=== PATIENT | male | born 1985 | race Caucasian/White ===

== ENCOUNTER 2016-10-21 10:33 | Emergency (ER) | payer SELFPAY ==
[2016-10-21 11:17] VITALS: TEMP 98
[2016-10-21] MEDS ORDERED: FLUTICASONE 50MCG/SPRAY NASAL 16GM EA NOSTRIL STA (11:46)
--- NOTE | 2016-10-21 11:53 | ED ---
ENT HPI - General Chief complaint: ENT Stated complaint: nosebleeds Time Seen by Provider: 10/21/16 11:27 Source: patient, RN notes reviewed Mode of arrival: ambulatory Limitations: no limitations - History of Present Illness Initial comments: 31-year-old male presents emergency Department chief complaint of epistaxis patient states she's had about 3 or 4 nosebleeds over the last week or so. Patient states there was just stopped. Patient states he has any lightheadedness or dizziness with this. Patient denies any falls,. Patient states she was concerned due to the bleeding states that they should be seen. Patient denied this time any bleeding.Patient denies any recent fever, chills, shortness of breath, chest pain, back pain, abdominal pain, nausea vomiting, numbness or tingling, dysuria or hematuria, constipation or diarrhea, headaches or visual changes, or any other current symptoms. - Related Data Allergies Allergy/AdvReac Type Severity Reaction Status Date / Time Penicillins Allergy Unknown Verified 10/21/16 11:17 Childhood Review of Systems ROS Statement: Those systems with pertinent positive or pertinent negative responses have been documented in the HPI. ROS Other: All systems not noted in ROS Statement are negative. Past Medical History Additional Past Medical History / Comment(s): pneumothorax with chest tube insertion 2012 History of Any Multi-Drug Resistant Organisms: None Reported Past Surgical History: No Surgical Hx Reported Past Psychological History: No Psychological Hx Reported Smoking Status: Never smoker Past Alcohol Use History: Occasional Past Drug Use History: None Reported General Exam Limitations: no limitations General appearance: alert, in no apparent distress Head exam: Present: atraumatic, normocephalic, normal inspection Eye exam: Present: normal appearance, PERRL, EOMI. Absent: scleral icterus, conjunctival injection, periorbital swelling Expanded Ear exam: Present: normal external inspection Mouth exam: Present: normal external inspection Teeth exam: Present: normal inspection Throat exam: normal inspection, other (Patient does appear to bleeding of bilateral Kiesselbach plexus that is currently clotted for this. Recent dryness to the area.) Neck exam: Present: normal inspection. Absent: tenderness, meningismus, lymphadenopathy Respiratory exam: Present: normal lung sounds bilaterally. Absent: respiratory distress, wheezes, rales, rhonchi, stridor Cardiovascular Exam: Present: regular rate, normal rhythm, normal heart sounds. Absent: systolic murmur, diastolic murmur, rubs, gallop, clicks Neurological exam: Present: alert, oriented X3, CN II-XII intact. Absent: motor sensory deficit Psychiatric exam: Present: normal affect, normal mood Skin exam: Present: warm, dry, intact, normal color. Absent: rash Course Vital Signs 10/21/16 11:14 Temperature 98.0 F Pulse Rate 71 Respiratory 18 Rate Blood Pressure 145/84 O2 Sat by Pulse 98 Oximetry Medical Decision Making - Medical Decision Making 31-year-old male presents emergency department history of epistaxis. This time we discussed using Neosporin to the area to help with lubrication. At this time patient is not bleeding. He was given nasal clamp and Flonase to help if he does continue to bleed again. We did Follow-up patient stated he understood all questions have been answered. This and will be discharged home. Disposition Clinical Impression: Anterior epistaxis Disposition: HOME SELF-CARE Condition: Stable Instructions: Nosebleed (ED) Additional Instructions: Please use medication as discussed. Please follow up with family doctor if symptoms have not improved over the next two days. Please return to the emergency room if your symptoms increase or worsen or for any other concerns. Referrals: Celena Yeung MD [STAFF PHYSICIAN] - 1-2 days Time of Disposition: 11:52
[2016-10-21 12:36] VITALS: BP 119/66; PULSE 65; RESP 16
== END 2016-10-21 12:36 | disposition home or self-care (01) ==
LOC: EC 10:33
DX: R04.0 Epistaxis (principal); Z88.0 Allergy status to penicillin
CPT/HCPCS: 99282

== ENCOUNTER 2017-11-19 14:58 | Emergency (ER) | payer OTHER ==
[2017-11-19 15:03] VITALS: BP 118/70; PULSE 108; RESP 16; TEMP 101.2
[2017-11-19] MEDS ORDERED: ACETAMINOPHEN TAB 500 MG TAB PO STA (15:42)
[2017-11-19] MEDS ORDERED: IBUPROFEN 600 MG TAB PO STA (15:42)
--- NOTE | 2017-11-19 15:54 | ED ---
General Adult HPI - General Chief complaint: Upper Respiratory Infection Stated complaint: Neck Pain Time Seen by Provider: 11/19/17 15:33 Source: patient, RN notes reviewed Mode of arrival: ambulatory Limitations: no limitations - History of Present Illness Initial comments: Patient 32-year-old male who presents emergency room today with chief complaint of increased cough congestion and body aches that started yesterday. He does not that he woke up this morning feeling worse. Did take IV Profen proximal 9 AM. Patient does admit to some aches in his back and his upper neck area. States worse with certain movements. Patient admits that when he woke up from a nap was not feeling well and girlfriend advised him come here to the emergency room. Patient denies any nausea or vomiting. States he has been tolerating liquids. Patient denies any complaints or symptoms at this time. - Related Data Previous Rx's Medication Instructions Recorded Ibuprofen [Motrin] 600 mg PO Q6HR PRN #40 day 11/19/17 Oseltamivir [Tamiflu] 75 mg PO Q12HR 5 Days cap 11/19/17 Allergies Allergy/AdvReac Type Severity Reaction Status Date / Time Penicillins Allergy Unknown Verified 11/19/17 15:46 Childhood Review of Systems ROS Statement: Those systems with pertinent positive or pertinent negative responses have been documented in the HPI. ROS Other: All systems not noted in ROS Statement are negative. Past Medical History Additional Past Medical History / Comment(s): pneumothorax with chest tube insertion 2011 History of Any Multi-Drug Resistant Organisms: None Reported Past Surgical History: No Surgical Hx Reported Past Psychological History: No Psychological Hx Reported Smoking Status: Never smoker Past Alcohol Use History: Occasional Past Drug Use History: None Reported General Exam - General Exam Comments Initial Comments: General: The patient is awake and alert, in no distress, and does not appear acutely ill. Eye: Pupils are equal, round and reactive to light, extra-ocular movements are intact. No nystagmus. There is normal conjunctiva bilaterally. No signs of icterus. Ears, nose, mouth and throat: There are moist mucous membranes and no oral lesions. Neck: The neck is supple, there is no tenderness or JVD. No meningismal signs. Cardiovascular: There is a regular rate and rhythm. No murmur, rub or gallop is appreciated. Respiratory: Lungs are clear to auscultation, respirations are non-labored, breath sounds are equal. No wheezes, stridor, rales, or rhonchi. Musculoskeletal: Normal ROM, no tenderness. Strength 5/5. Sensation intact. Pulses equal bilaterally 2+. Neurological: A&O x 3. CN II-XII intact, There are no obvious motor or sensory deficits. Coordination appears grossly intact. Speech is normal. Skin: Skin is warm and dry and no rashes or lesions are noted. Psychiatric: Cooperative, appropriate mood & affect, normal judgment. Limitations: no limitations Course Vital Signs 11/19/17 15:01 Temperature 101.2 F H Pulse Rate 108 H Respiratory 16 Rate Blood Pressure 118/70 O2 Sat by Pulse 97 Oximetry Medical Decision Making - Medical Decision Making Chest x-ray negative for any pneumonia. Patient influenza A positive will be started on Tamiflu. - Lab Data Lab Results 11/19/17 Range/Units 15:04 Influenza Type A RNA Detected H (Not Detectd) Influenza Type B (PCR) Not Detected (Not Detectd) Disposition Clinical Impression: Influenza A Disposition: HOME SELF-CARE Condition: Good Instructions: Influenza (ED) Additional Instructions: Please use medication as discussed. Please follow-up with family doctor in the next 2 days of symptoms have not improved. Please return to emergency room if the symptoms increase or worsen or for any other concerns. Prescriptions: Ibuprofen [Motrin] 600 mg PO Q6HR PRN #40 day PRN Reason: Pain Oseltamivir [Tamiflu] 75 mg PO Q12HR 5 Days cap Referrals: None,Stated [Primary Care Provider] - 1-2 days Kris Avery DO [STAFF PHYSICIAN] - 1-2 days Time of Disposition: 15:57
--- NOTE | 2017-11-19 15:55 | XR ---
EXAMINATION TYPE: XR chest 2V DATE OF EXAM: 11/19/2017 COMPARISON: None HISTORY: 32-year-old male with cough, headache, fever TECHNIQUE: PA and lateral views FINDINGS: The cardiomediastinal silhouette, aorta, and pulmonary vasculature are within normal limits. Lungs an d pleural spaces are clear. IMPRESSION: No acute cardiopulmonary process.
== END 2017-11-19 16:04 | disposition home or self-care (01) ==
LOC: EC 14:58
DX: J10.1 Influenza due to other identified influenza virus with other respiratory manifestations (principal); Z98.890 Other specified postprocedural states; Z88.0 Allergy status to penicillin
CPT/HCPCS: 71046; 87502; 99283

== ENCOUNTER 2018-01-15 01:25 | Emergency (ER) | payer OTHER ==
[2018-01-15 01:34] VITALS: BP 129/72; PULSE 81; RESP 20; TEMP 97.8
[2018-01-15] MEDS ORDERED: predniSONE 50 MG TAB PO STA (01:50)
--- NOTE | 2018-01-15 02:10 | ED ---
URI HPI - General Chief Complaint: Upper Respiratory Infection Stated Complaint: cough Time Seen by Provider: 01/15/18 01:42 Source: patient Mode of arrival: ambulatory Limitations: no limitations - History of Present Illness Initial Comments: 32-year-old male patient presents to the emergency department today for complaints of cough for a little over 2 weeks. Patient reports that symptoms started with a hoarse voice and mild cough. Patient states that the cough seems to be worsening. States he has episodes of coughing that causes his chest to hurt. Patient states he does have mild shortness of breath during these coughing episodes. Patient denies any fevers or chills with this. He denies any nasal congestion, ear pain, or sore throat. States he does have seasonal allergies and thinks this may be contributing. Denies any tobacco use. Patient denies any recent rash, abdominal pain, nausea, vomiting, diarrhea , constipation, back pain, numbness, tingling, dizziness, weakness, hematuria, dysuria, urinary urgency, urinary frequency, headache, visual changes, or any other complaints. - Related Data Previous Rx's Medication Instructions Recorded Albuterol Sulfate [Proair Hfa] 1 - 2 puff INHALATION Q6HR PRN #1 01/15/18 inhaler Promethaz-Cod 6.25-10 mg/5 ml 5 ml PO Q6HR PRN #100 ml 01/15/18 [Phenergan with Codeine] methylPREDNISolone [Medrol Dose 4 mg PO DIRECTED #1 pack 01/15/18 Pack] Allergies Allergy/AdvReac Type Severity Reaction Status Date / Time Penicillins Allergy Unknown Verified 11/19/17 15:46 Childhood Review of Systems ROS Statement: Those systems with pertinent positive or pertinent negative responses have been documented in the HPI. ROS Other: All systems not noted in ROS Statement are negative. Past Medical History Additional Past Medical History / Comment(s): pneumothorax with chest tube insertion 2011 History of Any Multi-Drug Resistant Organisms: None Reported Past Surgical History: No Surgical Hx Reported Past Psychological History: No Psychological Hx Reported Smoking Status: Never smoker Past Alcohol Use History: Occasional Past Drug Use History: None Reported General Exam Limitations: no limitations General appearance: alert, in no apparent distress, other (This is a well- developed, well-nourished adult male patient in no acute distress. Vital signs upon presentation are 97.8F, pulse 81, respirations 20, blood pressure 129/72, pulse ox 98% on room air.) Eye exam: Present: normal appearance, PERRL, EOMI. Absent: scleral icterus, conjunctival injection, periorbital swelling ENT exam: Present: normal exam, normal oropharynx, mucous membranes moist, TM's normal bilaterally Respiratory exam: Present: normal lung sounds bilaterally. Absent: respiratory distress, wheezes, rales, rhonchi, stridor Cardiovascular Exam: Present: regular rate, normal rhythm, normal heart sounds. Absent: systolic murmur, diastolic murmur, rubs, gallop, clicks Neurological exam: Present: alert, oriented X3, CN II-XII intact Psychiatric exam: Present: normal affect, normal mood Skin exam: Present: warm, dry, intact, normal color. Absent: rash Course Vital Signs 01/15/18 01:31 Temperature 97.8 F Pulse Rate 81 Respiratory 20 Rate Blood Pressure 129/72 O2 Sat by Pulse 98 Oximetry Medical Decision Making - Medical Decision Making 32-year-old male patient presented to the emergency department today for evaluation of cough 2 weeks. Physical examination was unremarkable. Lungs are clear to auscultation with good air movement. Chest x-ray showed no acute cardiopulmonary process. Patient was given a dose of by mouth prednisone here in the department. He'll be discharged home with a Medrol Dosepak, cough medication, and Pro Air inhaler. He is instructed to follow-up with his primary care physician for recheck in 1-2 days. He is instructed to return here immediately for any new, worsening, or concerning symptoms. He verbalizes understanding and agrees with this plan. - Radiology Data Radiology results: report reviewed, image reviewed Two-view x-ray of the chest shows a heart and mediastinum are normal. There is unusual pleural thickening on the left lateral chest wall extending into the lung apex. There is also minimal linear density in the lateral right lower lobe probably due to pleural pulmonary scarring. There is no pleural effusion. Pulmonary vascularity is normal. Impression by Dr. Silva shows no active cardio pulmonary disease. Stable bilateral mild pleural thickening. Disposition Clinical Impression: Acute bronchitis Disposition: HOME SELF-CARE Condition: Good Instructions: Acute Bronchitis (ED) Additional Instructions: Use medications as directed. Follow-up with your primary care physician for recheck in 1-2 days. Return here immediately for any new, worsening, or concerning symptoms. Prescriptions: Albuterol Sulfate [Proair Hfa] 1 - 2 puff INHALATION Q6HR PRN #1 inhaler PRN Reason: Shortness Of Breath methylPREDNISolone [Medrol Dose Pack] 4 mg PO DIRECTED #1 pack Promethaz-Cod 6.25-10 mg/5 ml [Phenergan with Codeine] 5 ml PO Q6HR PRN #100 ml PRN Reason: Cough Referrals: None,Stated [Primary Care Provider] - 1-2 days Time of Disposition: 02:33
--- NOTE | 2018-01-15 02:26 | XR ---
EXAMINATION TYPE: XR chest 2V DATE OF EXAM: 01/15/2018 COMPARISON: 11/19/2017 HISTORY: Cough TECHNIQUE: Frontal and lateral views of the chest are obtained. FINDINGS: Heart and mediastinum are normal. There is unusual pleural thickening on the left lateral chest wall extending to the lung apex. There is also minimal linear density in the lateral right lowe r lobe probably due to pleural or pulmonary scarring. There is no pleural effusion. Pulmonary vascula rity is normal. IMPRESSION: No active cardiopulmonary disease. Stable bilateral mild pleural thickening.
== END 2018-01-15 02:45 | disposition home or self-care (01) ==
LOC: EC 01:25
DX: J20.9 Acute bronchitis, unspecified (principal); Z88.0 Allergy status to penicillin
CPT/HCPCS: 71046; 99283

== ENCOUNTER 2018-04-18 23:50 | Emergency (ER) | payer OTHER ==
[2018-04-19 00:08] VITALS: RESP 18
[2018-04-19] MEDS ORDERED: ACETAMINOPHEN TAB 500 MG TAB PO STA (00:56)
[2018-04-19 01:15] LABS: Appearance,Urine Clear (Clear); Bilirubin,Urine Negative (Negative); Blood,Urine Negative (Negative); Color,Urine Yellow; Glucose,Urine (UA) Negative (Negative); Ketones,Urine Negative (Negative); Leukocyte Esterase,Urine Negative (Negative); Nitrite,Urine Negative (Negative); PH, Urine 5.5 (5.0-8.0); Protein,Urine Negative (Negative); Specific Gravity,Urine 1.019 (1.001-1.035)
--- NOTE | 2018-04-19 02:36 | ED ---
General Adult HPI - General Chief complaint: Dizziness Stated complaint: Dehydration Time Seen by Provider: 04/19/18 00:35 Source: patient Mode of arrival: ambulatory Limitations: no limitations - History of Present Illness Initial comments: 32-year-old male patient presents the emergency department today for evaluation of mild headache. Patient states that he has been walking around town all day in the heat up to 96F. Patient states that he only drank 2-3 bottles of water today. Patient states that he gets headaches when he doesn't drink enough water. Patient states that his headache is improved now he has been resting. States that earlier in the day he had some intermittent dizziness. Patient is requesting work no. He denies any nausea, vomiting, current dizziness, weakness , numbness, or tingling. He denies any chest pain or shortness of breath. Patient denies any recent rash, fever, chills, abdominal pain, diarrhea, constipation, back pain, hematuria, dysuria, urinary urgency, urinary frequency , visual changes, or any other complaints. - Related Data Home Medications Medication Instructions Recorded Confirmed No Known Home Medications 04/19/18 04/19/18 Allergies Allergy/AdvReac Type Severity Reaction Status Date / Time Penicillins Allergy Unknown Verified 04/19/18 00:08 Childhood Review of Systems ROS Statement: Those systems with pertinent positive or pertinent negative responses have been documented in the HPI. ROS Other: All systems not noted in ROS Statement are negative. Past Medical History Additional Past Medical History / Comment(s): pneumothorax with chest tube insertion 2011 History of Any Multi-Drug Resistant Organisms: None Reported Past Surgical History: No Surgical Hx Reported Past Psychological History: No Psychological Hx Reported Smoking Status: Current every day smoker Past Alcohol Use History: Occasional Past Drug Use History: None Reported General Exam Limitations: no limitations General appearance: alert, in no apparent distress, other (This is a well- developed, well-nourished adult male patient in no acute distress. Vital signs upon presentation are temperature 97.8F, pulse 66, respirations 18, blood pressure 130/73, pulse ox 96% on room air.) Eye exam: Present: normal appearance, PERRL, EOMI. Absent: scleral icterus, conjunctival injection, nystagmus, periorbital swelling ENT exam: Present: normal exam, normal oropharynx, mucous membranes moist Respiratory exam: Present: normal lung sounds bilaterally. Absent: respiratory distress, wheezes, rales, rhonchi, stridor Cardiovascular Exam: Present: regular rate, normal rhythm, normal heart sounds. Absent: systolic murmur, diastolic murmur, rubs, gallop, clicks GI/Abdominal exam: Present: soft, normal bowel sounds. Absent: distended, tenderness, guarding, rebound, rigid Neurological exam: Present: alert, oriented X3, CN II-XII intact, other ( Strength in all 4 extremities is 5/5.) Psychiatric exam: Present: normal affect, normal mood Skin exam: Present: warm, dry, intact, normal color. Absent: rash Course Vital Signs 04/19/18 04/19/18 00:05 03:57 Temperature 97.8 F 97.0 F L Pulse Rate 66 65 Respiratory 18 18 Rate Blood Pressure 130/73 116/56 O2 Sat by Pulse 96 100 Oximetry Medical Decision Making - Medical Decision Making 32-year-old male patient presented to the emergency department today for evaluation of mild headache and possible dehydration. Patient is requesting work no. Physical examination is unremarkable. He is neurologically intact. Did perform urinalysis showed no evidence of ketones. Patient was given Tylenol for headache. Upon reevaluation he is feeling much better. Patient will be discharged home to follow-up with his primary care physician for recheck in 1-2 days. Return parameters discussed in detail. He verbalizes understanding and agreed with this plan. - Lab Data Lab Results 04/19/18 Range/Units 01:00 Urine Color Yellow Urine Appearance Clear (Clear) Urine pH 5.5 (5.0-8.0) Ur Specific [place] 1.019 (1.001-1.035) Urine Protein Negative (Negative) Urine Glucose (UA) Negative (Negative) Urine Ketones Negative (Negative) Urine Blood Negative (Negative) Urine Nitrite Negative (Negative) Urine Bilirubin Negative (Negative) Urine Urobilinogen 2.0 (<2.0) mg/dL Ur Leukocyte Esterase Negative (Negative) Disposition Clinical Impression: Headache Disposition: HOME SELF-CARE Condition: Good Instructions: Acute Headache (ED) Additional Instructions: Increase fluids. Rest. Follow-up with your primary care physician for recheck in 1-2 days. Return here immediately for any new, worsening, or concerning symptoms. Is patient prescribed a controlled substance at d/c from ED?: No Referrals: Tadeo De La Fuente MD [Primary Care Provider] - 1-2 days Time of Disposition: 02:36
[2018-04-19 03:58] VITALS: BP 116/56; PULSE 65; TEMP 97
== END 2018-04-19 03:57 | disposition home or self-care (01) ==
LOC: EC 23:50
DX: R51 Headache (principal); R42 Dizziness and giddiness; F17.200 Nicotine dependence, unspecified, uncomplicated; Z88.0 Allergy status to penicillin
CPT/HCPCS: 81003; 99284

== ENCOUNTER 2018-05-02 00:28 | Emergency (ER) | payer OTHER ==
[2018-05-02 00:39] VITALS: BP 140/77; PULSE 76; RESP 18; TEMP 98.4
--- NOTE | 2018-05-02 00:44 | ED ---
General Adult HPI - General Chief complaint: Skin/Abscess/Foreign Body Stated complaint: Foot infection Time Seen by Provider: 05/02/18 00:35 Source: patient, RN notes reviewed Mode of arrival: ambulatory Limitations: no limitations - History of Present Illness Initial comments: This is a 32-year-old male presents to the emergency department because he had a little bit of his skin peeling on the bottoms of both of his feet. This is occurring at the distal metatarsals palmar surface. Patient states he works all day on his feet and he does not report any powder on his feet or change socks when he gets off one job ago so the other. Patient states they do itch a little bit. Patient denies any fever patient denies any drainage. Patient denies any erythema. - Related Data Home Medications Medication Instructions Recorded Confirmed No Known Home Medications 04/19/18 05/02/18 Allergies Allergy/AdvReac Type Severity Reaction Status Date / Time Penicillins Allergy Unknown Verified 05/02/18 00:37 Childhood Review of Systems ROS Statement: Those systems with pertinent positive or pertinent negative responses have been documented in the HPI. ROS Other: All systems not noted in ROS Statement are negative. Past Medical History Additional Past Medical History / Comment(s): pneumothorax with chest tube insertion 2011 History of Any Multi-Drug Resistant Organisms: None Reported Past Surgical History: No Surgical Hx Reported Past Psychological History: No Psychological Hx Reported Smoking Status: Current every day smoker Past Alcohol Use History: None Reported Past Drug Use History: None Reported General Exam - General Exam Comments Initial Comments: GENERAL Patient is well-developed and well-nourished. Patient is in mild distress. EYES Patient's pupils are equal and round. Extraocular motion is intact SKIN Unremarkable NEURO The patient is alert and oriented 3 PYSCH Patient has normal interpersonal interactions. MUSCULOSKELETAL Both feet have a small area of skin that is been excoriated at the distal metatarsal could be consistent with some early athlete's foot Limitations: no limitations Course Vital Signs 05/02/18 00:37 Temperature 98.4 F Pulse Rate 76 Respiratory 18 Rate Blood Pressure 140/77 O2 Sat by Pulse 98 Oximetry Disposition Clinical Impression: Athletes foot Disposition: HOME SELF-CARE Instructions: Athlete's Foot (ED) Is patient prescribed a controlled substance at d/c from ED?: No Referrals: Tadeo De La Fuente MD [Primary Care Provider] - 1-2 days Time of Disposition: 00:44
== END 2018-05-02 00:53 | disposition home or self-care (01) ==
LOC: EC 00:28
DX: B35.3 Tinea pedis (principal); F17.200 Nicotine dependence, unspecified, uncomplicated; Z88.0 Allergy status to penicillin
CPT/HCPCS: 99283

== ENCOUNTER 2018-05-08 14:23 | Emergency (ER) | payer OTHER ==
[2018-05-08 14:29] VITALS: PULSE 86
--- NOTE | 2018-05-08 15:37 | ED ---
General Adult HPI - General Chief complaint: Dental/Oral Stated complaint: Dental pain Time Seen by Provider: 05/08/18 14:35 Source: patient, RN notes reviewed Mode of arrival: ambulatory Limitations: no limitations - History of Present Illness Initial comments: 32-year-old male presents to the emergency department for a chief complaint of dental pain 3 days. Patient states the pain is in his right lower jaw and sometimes radiates to his right ear. Patient states he had wisdom teeth pulled a few years ago and wonders if it could be related to that. Patient denies any fevers or chills. Patient denies any neck stiffness or difficulty moving the neck. Patient denies any swelling in the jaw or the neck. Patient states took Motrin which helped somewhat. Patient does not currently have a dentist. Patient has no other complaints at this time including shortness of breath, chest pain, abdominal pain, nausea or vomiting, headache, or visual changes. - Related Data Home Medications Medication Instructions Recorded Confirmed Ibuprofen [Motrin Ib] 400 mg PO Q6H PRN 05/08/18 05/08/18 Previous Rx's Medication Instructions Recorded Clindamycin [Cleocin] 450 mg PO Q8H 10 Days capsule 05/08/18 Ibuprofen [Motrin] 600 mg PO Q8HR PRN #20 tab 05/08/18 Allergies Allergy/AdvReac Type Severity Reaction Status Date / Time Penicillins Allergy Unknown Verified 05/08/18 14:46 Childhood Review of Systems ROS Statement: Those systems with pertinent positive or pertinent negative responses have been documented in the HPI. ROS Other: All systems not noted in ROS Statement are negative. Past Medical History Past Medical History: No Reported History Additional Past Medical History / Comment(s): pneumothorax with chest tube insertion 2011 History of Any Multi-Drug Resistant Organisms: None Reported Past Surgical History: No Surgical Hx Reported Past Psychological History: No Psychological Hx Reported Smoking Status: Current every day smoker Past Alcohol Use History: None Reported Past Drug Use History: None Reported General Exam Limitations: no limitations General appearance: alert, in no apparent distress Head exam: Present: atraumatic, normocephalic, normal inspection Eye exam: Present: normal appearance, PERRL, EOMI. Absent: scleral icterus, conjunctival injection, periorbital swelling ENT exam: Present: mucous membranes moist, TM's normal bilaterally, normal external ear exam. Absent: normal oropharynx (Patient has a tender in cracked tooth 30. No drainable abscess noted.) Neck exam: Present: normal inspection, full ROM (Full range motion of the neck. No swelling noted in the neck). Absent: tenderness, meningismus, lymphadenopathy (No lymphadenopathy noted) Respiratory exam: Present: normal lung sounds bilaterally. Absent: respiratory distress, wheezes, rales, rhonchi, stridor Cardiovascular Exam: Present: regular rate, normal rhythm, normal heart sounds. Absent: systolic murmur, diastolic murmur, rubs, gallop, clicks Course Vital Signs 05/08/18 14:28 Temperature 98.0 F Pulse Rate 86 Respiratory 18 Rate Blood Pressure 136/81 O2 Sat by Pulse 99 Oximetry Medical Decision Making - Medical Decision Making 32-year-old male presents to the emergency department for chief complaint of dental pain 3 days. Patient states it is in his right lower jaw. Patient has taken Motrin which has helped somewhat. On exam patient has poor dental hygiene. Patient has a cracked tooth 30. No drainable abscess noted. Full range motion of the neck. No swelling in the neck or jaw. Patient will be given clindamycin as he is penicillin ALLERGIC. He will follow up with [facility]. He will return to the emergency department if he has any worsening symptoms or fevers which he is aware of. Disposition Clinical Impression: Pain, dental Disposition: HOME SELF-CARE Condition: Good Instructions: Dental Caries (ED), Toothache (ED) Additional Instructions: Please take antibiotic as directed. Please take Motrin or Tylenol for pain. Follow up with dentist in 1-2 days. Return to the emergency department if you have any worsening symptoms. [facility]: [address] [place] [address] Prescriptions: Clindamycin [Cleocin] 450 mg PO Q8H 10 Days capsule Ibuprofen [Motrin] 600 mg PO Q8HR PRN #20 tab PRN Reason: Pain Is patient prescribed a controlled substance at d/c from ED?: No Referrals: Tadeo De La Fuente MD [Primary Care Provider] - 1-2 days Time of Disposition: 15:34
[2018-05-08 15:46] VITALS: BP 124/70; RESP 20; TEMP 97.5
== END 2018-05-08 15:46 | disposition home or self-care (01) ==
LOC: EC 14:23
DX: K03.81 Cracked tooth (principal); R68.84 Jaw pain; H92.01 Otalgia, right ear; F17.200 Nicotine dependence, unspecified, uncomplicated; Z88.0 Allergy status to penicillin
CPT/HCPCS: 99282

== ENCOUNTER 2018-11-05 19:29 | Emergency (ER) | payer OTHER ==
[2018-11-05 19:47] VITALS: PULSE 78; TEMP 98.2
--- NOTE | 2018-11-05 20:24 | XR ---
EXAMINATION TYPE: XR wrist complete RT DATE OF EXAM: 11/05/2018 COMPARISON: NONE HISTORY: Wrist pain TECHNIQUE: 4 views FINDINGS: Metacarpals are intact. Carpal bones appear intact. I see no fracture nor dislocation. Ther e are no erosions. IMPRESSION: Negative right wrist exam.
--- NOTE | 2018-11-05 21:05 | ED ---
General Adult HPI - General Chief complaint: Extremity Problem,Nontraumatic Stated complaint: Right wrist pain Time Seen by Provider: 11/05/18 19:52 Source: patient, RN notes reviewed, old records reviewed Mode of arrival: ambulatory Limitations: no limitations - History of Present Illness Initial comments: 33-year-old male patient with no pertinent past medical history since to ED with right wrist pain for 3 days. Patient states that the last 3 days has had some inflammation in his right wrist and pain. Patient denies any trauma. 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 Patient denies any other symptoms. Patient denies nausea vomiting diarrhea, fever chills, chest pain, shortness of breath, abdominal pain, cough. Patient denies other complaints. Systemic: Pt denies fatigue, myalgia, fever/chills, rash. Pt denies weakness, night sweats, weight loss. Neuro: Pt denies headache, visual disturbances, syncope or pre-syncope. HEENT: Pt denies ocular discharge or irritation, otalgia, rhinorrhea, pharyngitis or notable lymphadenopathy. Cardiopulmonary: Pt denies chest pain, SOB, heart palpitations, dyspnea on exertion. Abdominal/GI: Pt denies abdominal pain, n/v/d. : Pt denies dysuria, burning w/ urination, frequency/urgency. Denies new onset urinary or bowel incontinence. MSK: Pt denies myalgia, loss of strength or function in extremities. Neuro: Pt denies new onset weakness, paresthesias. - Related Data Home Medications Medication Instructions Recorded Confirmed Ibuprofen [Motrin Ib] 400 mg PO Q6H PRN 05/08/18 05/08/18 Previous Rx's Medication Instructions Recorded Clindamycin [Cleocin] 450 mg PO Q8H 10 Days capsule 05/08/18 Ibuprofen [Motrin] 600 mg PO Q8HR PRN #20 tab 05/08/18 Ibuprofen [Motrin] 600 mg PO Q6HR PRN #40 day 11/05/18 Allergies Allergy/AdvReac Type Severity Reaction Status Date / Time Penicillins Allergy Unknown Verified 11/05/18 19:47 Childhood Review of Systems ROS Statement: Those systems with pertinent positive or pertinent negative responses have been documented in the HPI. ROS Other: All systems not noted in ROS Statement are negative. Past Medical History Past Medical History: No Reported History Additional Past Medical History / Comment(s): pneumothorax with chest tube insertion 2011 History of Any Multi-Drug Resistant Organisms: None Reported Past Surgical History: No Surgical Hx Reported Past Psychological History: No Psychological Hx Reported Smoking Status: Current some day smoker Past Alcohol Use History: Rare Past Drug Use History: None Reported General Exam - General Exam Comments Initial Comments: Constitutional: NAD, AOX3, Pt has pleasant affect. HEENT: NC/AT, trachea midline, neck supple, no lymphadenopathy. Posterior pharynx non erythematous, without exudates. External ears appear normal, without discharge. Mucous membranes moist. Eyes PERRLA, EOM intact. There is no scleral icterus. No pallor noted. Cardiopulmonary: RRR, no murmurs, rubs or gallops, no JVD noted. Lungs CTAB in anterior and posterior christian. No peripheral edema. Abdominal exam: Abdomen soft and non-distended. Abdomen non-tender to palpation in all 4 quadrants. Bowel sounds active in LLQ. No hepatosplenomegaly. No ecchymosis Neuro: CN II-XII grossly intact. No nuchal rigidity. MSK: Pt has mild amount of edema on R wrist, no signs of cellulitis or abscess. Pt has full active ROM of R wrist. Radial aspect of R wrist mildly tender to palpation. Sensation intact. Radial pulse +2, capillary refill <2 seconds. No posterior calf tenderness bilaterally, homans sign negative bilaterally. Posterior tibialis pulse +2 bilaterally. Sensation intact in upper and lower extremities. Full active ROM in upper and lower extremities, 5/5 stregnth. Limitations: no limitations Course Vital Signs 11/05/18 11/05/18 19:44 21:05 Temperature 98.2 F Pulse Rate 78 78 Respiratory 18 16 Rate Blood Pressure 127/82 139/84 O2 Sat by Pulse 96 97 Oximetry Medical Decision Making - Medical Decision Making 33-year-old male patient with no pertinent past medical history since to ED with right wrist pain for 3 days. Patient states that the last 3 days has had some inflammation in his right wrist and pain. Patient denies any trauma. 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 Patient denies any other symptoms. Pt VSS, afebrile. Physical exam displayed: Pt has mild amount of edema on R wrist, no signs of cellulitis or abscess. Pt has full active ROM of R wrist. Radial aspect of R wrist mildly tender to palpation. Sensation intact. Radial pulse +2, capillary refill <2 seconds. Plain film of R wrist displayed no acute process. Pt dx with wrist sprain 2/2 to overuse. Pt to f/u with PCP in 1-2 days for continued evaluation. Pt rx ibuprofen to use as needed to decrease inflammation / pain. Patient to return to ED if new signs or symptoms develop or if condition worsens in any way. Case discussed with Dr. Toledo. Disposition Clinical Impression: Wrist pain, right Disposition: HOME SELF-CARE Condition: Stable Instructions: Wrist Sprain (ED) Additional Instructions: Patient to adhere to previously discussed treatment plan and will take medication(s) as directed. Patient to follow up with PCP in 1-2 days. Patient to return to ED if symptoms do not improve. Prescriptions: Ibuprofen [Motrin] 600 mg PO Q6HR PRN #40 day PRN Reason: Pain Is patient prescribed a controlled substance at d/c from ED?: No Referrals: Tadeo De La Fuente MD [Primary Care Provider] - 1-2 days Time of Disposition: 21:05
[2018-11-05 21:06] VITALS: BP 139/84; RESP 16
== END 2018-11-05 21:09 | disposition home or self-care (01) ==
LOC: EC 19:29
DX: M25.531 Pain in right wrist (principal); R60.0 Localized edema; F17.200 Nicotine dependence, unspecified, uncomplicated; Z88.0 Allergy status to penicillin
CPT/HCPCS: 99284

== ENCOUNTER 2023-06-18 11:50 | Emergency (ER) | payer BC, OTHER ==
--- NOTE | 2023-06-18 12:46 | XR ---
EXAMINATION TYPE: XR chest 2V DATE OF EXAM: 06/18/2023 COMPARISON: 01/15/2018 HISTORY: 37 year-old male shortness of breath TECHNIQUE: PA and lateral views FINDINGS: Heart normal size. Aorta and pulmonary vasculature within normal limits. Increased interstitial densi ty in the lower lungs are unchanged. Slight irregular density periphery of the right base also unchan ged, likely from scarring. IMPRESSION: Suspect some interstitial scarring in the lower lungs. Correlate to exclude bronchitis or asthma.
--- NOTE | 2023-06-18 13:07 | ED ---
URI HPI - General Chief Complaint: Upper Respiratory Infection Stated Complaint: SOB,COUGHING, HEAD POUNDING Time Seen by Provider: 06/18/23 11:56 Source: patient, RN notes reviewed Mode of arrival: ambulatory Limitations: no limitations - History of Present Illness Initial Comments: 37-year-old male present emergency from chief complaint of cough, congestion, shortness breath. Patient states he has a history of asthma has been using his inhaler and updraft. Patient states that he's noticed mild wheezing no fever he states he is had some sick contacts. Patient offers no other complaints. - Related Data Home Medications Medication Instructions Recorded Confirmed Ibuprofen [Motrin Ib] 400 mg PO Q6H PRN 05/08/18 05/08/18 Previous Rx's Medication Instructions Recorded Clindamycin [Cleocin] 450 mg PO Q8H 10 Days capsule 05/08/18 Ibuprofen [Motrin] 600 mg PO Q8HR PRN #20 tab 05/08/18 Ibuprofen [Motrin] 600 mg PO Q6HR PRN #40 day 11/05/18 predniSONE 50 mg PO DAILY #5 tab 06/18/23 Allergies Allergy/AdvReac Type Severity Reaction Status Date / Time Penicillins Allergy Unknown Verified 06/18/23 11:56 Childhood Review of Systems ROS Statement: Those systems with pertinent positive or pertinent negative responses have been documented in the HPI. ROS Other: All systems not noted in ROS Statement are negative. Past Medical History Past Medical History: Asthma Additional Past Medical History / Comment(s): pneumothorax with chest tube insertion 2011 History of Any Multi-Drug Resistant Organisms: None Reported Past Surgical History: No Surgical Hx Reported Past Psychological History: No Psychological Hx Reported Smoking Status: Never smoker Past Alcohol Use History: Rare Past Drug Use History: None Reported General Exam Limitations: no limitations General appearance: alert, in no apparent distress Head exam: Present: atraumatic, normocephalic, normal inspection Eye exam: Present: normal appearance, PERRL, EOMI. Absent: scleral icterus, conjunctival injection, periorbital swelling ENT exam: Present: normal exam, normal oropharynx, mucous membranes moist Neck exam: Present: normal inspection, full ROM. Absent: tenderness, meningismus, lymphadenopathy Respiratory exam: Present: wheezes. Absent: normal lung sounds bilaterally, respiratory distress, rales, rhonchi, stridor Cardiovascular Exam: Present: regular rate, normal rhythm, normal heart sounds. Absent: systolic murmur, diastolic murmur, rubs, gallop, clicks GI/Abdominal exam: Present: soft, normal bowel sounds. Absent: distended, tenderness, guarding, rebound, rigid Course Vital Signs 06/18/23 06/18/23 11:52 13:20 Temperature 98.3 F 98.4 F Pulse Rate 83 78 Respiratory 20 18 Rate Blood Pressure 151/89 136/82 O2 Sat by Pulse 95 96 Oximetry Medical Decision Making - Medical Decision Making Was pt. sent in by a medical professional or institution (, PA, MOLD MACHINE OPERATOR, urgent care, hospital, or halfway...) When possible be specific @ -No Did you speak to anyone other than the patient for history (EMS, parent, family, police, friend...)? What history was obtained from this source @ -No Did you review nursing and triage notes (agree or disagree)? Why? @ -I reviewed and agree with nursing and triage notes Were old charts reviewed (outside hosp., previous admission, EMS record, old EKG, old radiological studies, urgent care reports/EKG's, halfway records)? Report findings @ -No old charts were reviewed Differential Diagnosis (chest pain, altered mental status, abdominal pain women, abdominal pain men, vaginal bleeding, weakness, fever, dyspnea, syncope, headache, dizziness, GI bleed, back pain, seizure, CVA, palpatations, mental health, musculoskeletal)? @ -URI, pneumonia, asthma exacerbation, Covid, influenza EKG interpreted by me (3pts min.). @ -None X-rays interpreted by me (1pt min.). @ -Chest x-ray shows evidence of bronchitis, asthma changes CT interpreted by me (1pt min.). @ -None done U/S interpreted by me (1pt. min.). @ -None done What testing was considered but not performed or refused? (CT, X-rays, U/S, labs)? Why? @ -None What meds were considered but not given or refused? Why? @ -None Did you discuss the management of the patient with other professionals (professionals i.e. , JULIAN, MOLD MACHINE OPERATOR, lab, RT, psych nurse, socially responsible investment adviser, mechanical commissioning engineer, teacher, founder and chief executive officer, caser up)? Give summary @ -No Was smoking cessation discussed for >3mins.? @ -No Was critical care preformed (if so, how long)? @ -No Were there social determinants of health that impacted care today? How? (Homelessness, low income, unemployed, alcoholism, drug addiction, transportation, low edu. Level, literacy, decrease access to med. care, fci, rehab)? @ -No Was there de-escalation of care discussed even if they declined (Discuss DNR or withdrawal of care, Hospice)? DNR status @ -No What co-morbidities impacted this encounter? (DM, HTN, Smoking, COPD, CAD, Cancer, CVA, ARF, Chemo, Hep., AIDS, mental health diagnosis, sleep apnea, morbid obesity)? @ -Asthma Was patient admitted / discharged? Hospital course, mention meds given and route, prescriptions, significant lab abnormalities, going to OR and other pertinent info. @ -Discharge patient will be treated for asthmatic bronchitis patient was started on prednisone continue albuterol treatments return parameters discussed. Undiagnosed new problem with uncertain prognosis? @ -No Drug Therapy requiring intensive monitoring for toxicity (Heparin, Nitro, Insulin, Cardizem)? @ -No Were any procedures done? @ -No Diagnosis/symptom? @ -Asthmatic bronchitis Acute, or Chronic, or Acute on Chronic? @ -Acute Uncomplicated (without systemic symptoms) or Complicated (systemic symptoms)? @ -unComplicated Side effects of treatment? @ -No Exacerbation, Progression, or Severe Exacerbation? @ -No Poses a threat to life or bodily function? How? (Chest pain, [place], [place], pneumonia, PE, COPD, DKA, ARF, appy, cholecystitis, CVA, Diverticulitis, Homicidal, Suicidal, threat to staff... and all critical care pts) @ -No - Lab Data Lab Results 06/18/23 Range/Units 12:18 Influenza Type A (PCR) Not Detected (Not Detectd) Influenza Type B (PCR) Not Detected (Not Detectd) RSV (PCR) Not Detected (Not Detectd) SARS-CoV-2 (PCR) Not Detected (Not Detectd) Disposition Clinical Impression: Asthmatic bronchitis Disposition: HOME SELF-CARE Condition: Stable Instructions (If sedation given, give patient instructions): Upper Respiratory Infection (ED) Additional Instructions: Please return to the Emergency Department if symptoms worsen or any other concerns. Prescriptions: predniSONE 50 mg PO DAILY #5 tab Is patient prescribed a controlled substance at d/c from ED?: No Referrals: Hal Avila MD [Primary Care Provider] - 1-2 days Time of Disposition: 13:07
[2023-06-18 13:22] VITALS: BP 136/82; PULSE 78; RESP 18; TEMP 98.4
== END 2023-06-18 13:22 | disposition home or self-care (01) ==
LOC: EC 11:50
DX: J45.909 Unspecified asthma, uncomplicated (principal); Z20.822 Contact with and (suspected) exposure to COVID-19; Z88.0 Allergy status to penicillin
CPT/HCPCS: 71046; 87636; 99285